=== PATIENT | female | born 1975 | race Hispanic/Latino ===

== ENCOUNTER → 2018-11-12 | Outpatient (CLI) | payer BC ==
--- NOTE | 2018-11-12 12:42 | RAD ---
EXAM DESCRIPTION: Pelvis CLINICAL HISTORY: 43 years Female, M25.561, M25.551 hip pain. COMPARISON: None. TECHNIQUE: AP radiograph of the pelvis was performed. FINDINGS: The pelvic ring appears grossly intact on this single AP radiograph. No acute fracture or dislocation. Bilateral sacroiliac joints appear grossly unremarkable.. Bilateral hip joints appear normal. The visualized lumbo-sacral spine appear grossly unremarkable. IMPRESSION: Single AP radiograph of the pelvis demonstrates grossly intact pelvic ring. Electronically signed by: Jossue Liz MD 11/12/2018 12:39 PM CDT
--- NOTE | 2018-11-12 12:46 | RAD ---
EXAM DESCRIPTION: Knee,Left Complete CLINICAL HISTORY: 43 years Female, PAIN INLEFT KNEE TECHNIQUE: 4 views of the left knee were performed. COMPARISON: None available. FINDINGS: The visualized bones appear well mineralized. No acute fracture or dislocation. Mild aofb-lv-gsigsuan tricompartmental osteoarthritic changes with narrowing of the medial compartment joint space narrowing noted. Mild suprapatellar joint effusion noted. The soft tissues appear grossly unremarkable. IMPRESSION: 1. No acute fracture or dislocation. 2. Mild to moderate tricompartmental osteoarthritic changes with mild narrowing of medial compartment joint space. Small suprapatellar joint effusion. Electronically signed by: Jossue Liz MD 11/12/2018 12:43 PM CDT
== END ==
LOC: RAD 09:41
PROVIDERS: ATTEND Orthopaedic Surgery
DX: M17.11 Unilateral primary osteoarthritis, right knee (principal); M25.551 Pain in right hip

== ENCOUNTER 2020-05-15 09:00 | Day surgery (SDC) | payer BC | END 2020-05-19 12:00 | disposition home or self-care (01) | LOC: AMB 09:00 | PROVIDERS: ATTEND Orthopaedic Surgery | DX: M17.12 Unilateral primary osteoarthritis, left knee (principal); Z53.9 Procedure and treatment not carried out, unspecified reason ==

== ENCOUNTER 2020-09-09 05:29 | Inpatient (IN) | payer BC ==
[2020-09-09] MEDS ORDERED: SODIUM CHL 0.9% 100ML MINI-BAG 100 ML IVPB ONE (05:58)
[2020-09-09] MEDS ORDERED: SODIUM CHLORIDE 0.9% 100ML 100 ML IVPB ONE (05:59)
[2020-09-09] MEDS ORDERED: SODIUM CHLORIDE 0.9% (FLUSH) 10 ML SYG ONE (05:59)
[2020-09-09] MEDS ORDERED: SODIUM CHLORIDE 0.9% 250ML 250 ML ONE (05:59)
[2020-09-09] MEDS ORDERED: LACTATED RINGERS 1,000 ML ONE (05:59)
[2020-09-09] MEDS ORDERED: VANCOMYCIN HCL INJ 1,000 MG VIAL IVPB ONE (06:00)
[2020-09-09] MEDS ORDERED: TRANEXAMIC ACID 1,000 MG/10 ML VIAL ONE (06:00)
[2020-09-09] MEDS ORDERED: ceFAZolin SODIUM 1 GM VIAL ONE (06:00)
[2020-09-09] MEDS ORDERED: ONDANSETRON INJ 4 MG/2 ML VIAL ONE (07:00)
[2020-09-09] MEDS ORDERED: PROPOFOL 200 MG/20 ML VIAL IV ONE (07:00)
[2020-09-09] MEDS ORDERED: METOCLOPRAMIDE HCL INJ 10 MG/2 ML VIAL ONE (07:00)
[2020-09-09] MEDS ORDERED: DEXAMETHASONE INJ 10 MG/ML VIAL ONE (07:00)
[2020-09-09] MEDS ORDERED: MIDAZOLAM INJ 2 MG/2 ML VIAL ONE (07:01)
[2020-09-09] MEDS ORDERED: ROCURONIUM BROMIDE 10 MG/ML VIAL ONE (07:02)
[2020-09-09] MEDS ORDERED: SUCCINYLCHOLINE CHLORIDE 200 MG/10 ML VIAL ONE (07:02)
[2020-09-09] MEDS ORDERED: fentaNYL CITRATE INJ 50 MCG/ML 5 ML AMP ONE (07:02)
[2020-09-09] MEDS ORDERED: PROMETHAZINE HCL INJ 25 MG in SODIUM CHLORIDE 0.9% 50ML 50 ML IVPB PRN (07:03)
[2020-09-09] MEDS ORDERED: ALUMINUM & MAGNESIUM HYDROXIDE 30 ML UD PO PRN (07:03)
[2020-09-09] MEDS ORDERED: MAGNESIUM HYDROXIDE 30 ML UD PO PRN (07:03)
[2020-09-09] MEDS ORDERED: TRANEXAMIC ACID INJ 1,000 MG in SODIUM CHLORIDE 0.9% 100ML 100 ML IVPB ONE (07:03)
[2020-09-09] MEDS ORDERED: hydrOXYzine HCl 25 MG TAB PO PRN (07:03)
[2020-09-09] MEDS ORDERED: NALOXONE HCL INJ 0.4 MG/ML VIAL IV PRN (07:03)
[2020-09-09] MEDS ORDERED: ACETAMINOPHEN 500 MG TAB PO PRN (07:03)
[2020-09-09] MEDS ORDERED: ZOLPIDEM TARTRATE 5 MG TAB PO PRN (07:03)
[2020-09-09] MEDS ORDERED: traMADol HCL 50 MG TAB PO PRN (07:03)
[2020-09-09] MEDS ORDERED: TEMAZEPAM 15 MG CAP PO PRN (07:03)
[2020-09-09] MEDS ORDERED: DEX 5% W/NACL 0.45% 1000ML 1,000 ML IVS PRN (07:03)
[2020-09-09] MEDS ORDERED: MORPHINE SULFATE INJ 10 MG/ML VIAL IM PRN (07:03)
[2020-09-09] MEDS ORDERED: SODIUM CHLORIDE 0.9% (FLUSH) 10 ML SYG IV PRN (07:03)
[2020-09-09] MEDS ORDERED: MORPHINE SULFATE INJ 10 MG/ML VIAL IV PRN (07:03)
[2020-09-09] MEDS ORDERED: BENZOCAINE-MENTH LOZ (CEPACOL) 1 EA LOZ MT PRN (07:03)
[2020-09-09] MEDS ORDERED: PROMETHAZINE HCL INJ 12.5 MG in SODIUM CHLORIDE 0.9% 50ML 50 ML IVPB PRN (07:03)
[2020-09-09] MEDS ORDERED: BISACODYL SUPPOSITORY 10 MG PR PRN (07:03)
[2020-09-09] MEDS ORDERED: ACETAMINOPHEN 325 MG TAB PO PRN (07:03)
[2020-09-09] MEDS ORDERED: MORPHINE SULFATE *EPIDURAL* 0.5 MG/ML VIAL ONE (07:10)
[2020-09-09] MEDS ORDERED: IV SET AND CAP CHANGE INJ INJ SCH (07:30)
[2020-09-09] MEDS ORDERED: MORPHINE PCA 1 MG/ML 100 ML BAG IVPB SCH (07:30)
[2020-09-09] MEDS: VANCOMYCIN HCL INJ 1,000 MG VIAL IVPB ONE ×3 (08:12→09:11)
[2020-09-09] MEDS: ceFAZolin SODIUM 1 GM VIAL ONE ×3 (08:12→09:11)
[2020-09-09] MEDS: BUPIVACAINE LIPOSOME 13.3 MG/ML VIAL INJ ONE ×2 (08:13→09:09)
[2020-09-09] MEDS: BUPIVACAINE 0.5% 30 ML VIAL INJ ONE ×2 (08:13→09:09)
[2020-09-09] MEDS ORDERED: BUPIVACAINE 0.5% 30 ML VIAL INJ ONE (08:46)
[2020-09-09] MEDS ORDERED: CADD ADMIN SET 1 EA PKG INJ ONE (10:12)
[2020-09-09] MEDS ORDERED: diphenhydrAMINE HCL 50 MG/ML VIAL ONE (11:52)
[2020-09-09] MEDS: ONDANSETRON INJ 4 MG/2 ML VIAL IV PRN ×2 (11:54→17:50)
[2020-09-09] MEDS: diphenhydrAMINE HCL 50 MG/ML VIAL IV PRN (12:01)
[2020-09-09] MEDS: CELECOXIB 100 MG CAP PO SCH ×2 (14:37→18:07)
[2020-09-09] MEDS: MAGNESIUM OXIDE 400 MG TAB PO SCH (14:38)
--- NOTE | 2020-09-09 16:26 | RAD ---
Intraoperative radiographs of the left knee Indication: LEFT TKA Comparison: None. Impression: 1 Images submitted. Postsurgical changes of left total knee arthroplasty partially visualized. Fluoroscopy time not submitted. Electronically signed by: Min Nunez MD 09/09/2020 4:25 PM [facility]
--- NOTE | 2020-09-09 17:14 | RAD ---
EXAM DESCRIPTION: Knee,Left 1 or 2 Views CLINICAL HISTORY: 45 years Female, TKA COMPARISON: None. Findings: Two images Location: Left knee Recent left total knee arthroplasty. No evidence of hardware complication. No acute fracture or dislocation. Expected postsurgical appearance of the overlying soft tissues. IMPRESSION: Recent left total knee arthroplasty. No evidence of hardware complication. Electronically signed by: Davi Wolfe MD 09/09/2020 5:12 PM [facility]
[2020-09-09] MEDS: ceFAZolin SODIUM 2 GM in SODIUM CHL 0.9% 50ML MIN-BAG+ 50 ML IVPB SCH ×2 (17:31→23:46)
[2020-09-09] MEDS: VANCOMYCIN HCL INJ 1,000 MG in SODIUM CHLORIDE 0.9% 250ML 250 ML IVPB SCH (17:40)
[2020-09-09] MEDS ORDERED: DOCUSATE CALCIUM 240 MG CAP ONE (19:22)
[2020-09-09] MEDS ORDERED: ENOXAPARIN SODIUM 30 MG/0.3 ML SYG SUBCU ONE (19:22)
[2020-09-09] MEDS: DOCUSATE CALCIUM 240 MG CAP PO SCH (20:17)
[2020-09-09] MEDS: ENOXAPARIN SODIUM 30 MG/0.3 ML SYG SUBCU SCH (23:06)
[2020-09-10] MEDS: diphenhydrAMINE HCL 50 MG/ML VIAL IV PRN (03:53)
[2020-09-10] MEDS: VANCOMYCIN HCL INJ 1,000 MG in SODIUM CHLORIDE 0.9% 250ML 250 ML IVPB SCH (05:45)
[2020-09-10] MEDS ORDERED: LEVOTHYROXINE SODIUM 0.1 MG TAB ONE (07:11)
[2020-09-10] MEDS ORDERED: LEVOTHYROXINE SODIUM 0.075 MG TAB ONE (07:11)
[2020-09-10] MEDS ORDERED: NON-FORMULARY MEDICATION 1 EA MIS (Levothyroxine Sodium [Levothyroxine Sodium] 125 MCG) PO SCH (07:30)
[2020-09-10] MEDS: LEVOTHYROXINE SODIUM 0.075 MG TAB PO SCH (07:33)
[2020-09-10] MEDS: CELECOXIB 100 MG CAP PO SCH ×2 (07:33→16:27)
[2020-09-10] MEDS: LEVOTHYROXINE SODIUM 0.1 MG TAB PO SCH (07:35)
[2020-09-10] MEDS: ceFAZolin SODIUM 2 GM in SODIUM CHL 0.9% 50ML MIN-BAG+ 50 ML IVPB SCH (07:38)
[2020-09-10] MEDS: MAGNESIUM OXIDE 400 MG TAB PO SCH (08:15)
--- NOTE | 2020-09-10 09:06 | PN ---
DATE: 09/10/20 SUBJECTIVE: Angelina is doing really well this morning. OBJECTIVE: Afebrile. Vital signs stable. Dressing is clean, dry and intact. ASSESSMENT: Status post total knee arthroplasty. PLAN: The plan at this point is for her to begin physical therapy for weightbearing as tolerated. #[id number] MTDD
--- NOTE | 2020-09-10 09:40 | OP ---
DATE OF PROCEDURE: 09/09/20 PREOPERATIVE DIAGNOSIS: 1. Osteoarthritis of the left knee. POSTOPERATIVE DIAGNOSIS: 1. Osteoarthritis of the left knee. PROCEDURE: 1. Total knee arthroplasty. SURGEON: Anthony Ponce MD. BILL SORTER: Shade Pichardo CST, SA-C. ANESTHESIA: General anesthesia. COMPLICATIONS: None. FINDINGS: Severe osteoarthritis. INDICATION: Ms. Seals has a history of knee pain that has been refractory to conservative measures. She has requested operative intervention secondary to the failure of conservative measures. After discussing the risks, benefits and alternatives to that, the patient has given informed consent for total knee arthroplasty. PROCEDURE: The patient was brought to the Operating Room and placed in supine position. General anesthesia was induced and the patient's leg was sterilely prepped and draped. Following prepping and draping, the distal femur was exposed and using an intramedullary guide, the distal femoral cut was made. The appropriate sized cutting block was measured, pinned into place, and the anterior, posterior, and chamfer cuts were made. The ACL was transected and the tibia was subluxed. Both the medial and lateral menisci were removed. An intramedullary guide was used to make the proximal tibial cut. The appropriate sized base plate was placed and a trial polyethylene was placed. The trial femur was placed, the knee was reduced, and the knee was taken through a range of motion. The knee was stable in anterior, posterior, varus and valgus stress. The patella tracked anatomically without evidence of subluxation or dislocation. After trialing, the trial components were removed and the bony surfaces were thoroughly irrigated with saline. Following irrigation, the surfaces were dried and the final components were cemented into place. The excess cement was removed and the remaining cement was allowed to cure. The knee was again taken through a range of motion to confirm stability. The wound was then irrigated with saline and closure was performed using PDS to approximate the arthrotomy followed by closure of the subcutaneous tissues with a combination of running and interrupted Monocryl sutures. Sterile dressing was placed. The patient was awoken from anesthesia and taken to Recovery. COMPONENTS: Hedgeable Triathlon knee, size 4 femur, size 4 tibia, 9 mm insert. #[id number] MTDD
[2020-09-10] MEDS: ENOXAPARIN SODIUM 30 MG/0.3 ML SYG SUBCU SCH ×2 (10:33→22:52)
[2020-09-10] MEDS ORDERED: GLUCAGON INJ 1 MG VIAL SUBCU PRN (10:41)
[2020-09-10] MEDS ORDERED: DEXTROSE 50% 25 GM/50 ML SYG IV PRN (10:41)
--- NOTE | 2020-09-10 11:08 | CONS ---
SUPERVISING PHYSICIAN: Priscilla Tolbert MD DATE OF CONSULTATION: 09/09/20 REASON FOR CONSULTATION: Medical management postoperative, left total knee arthroplasty. HISTORY OF PRESENT ILLNESS: This is a 45-year-old female patient who lives in [place], [place]. She has had osteoarthritis of the left knee for many years and has tried conservative measures, but has failed to gain any relief. She requested Dr. Anthony Ponce, orthopedic surgeon, for operative intervention. She was admitted to the hospital today for surgical intervention to have left total knee arthroplasty. There were no intraoperative complications and she was admitted to the Medical/Surgical Floor after her surgery. PAST MEDICAL HISTORY: 1. Hypothyroidism. 2. Mild diabetes on metformin. 3. Osteoarthritis. 4. Mild anxiety and depression. PAST SURGICAL HISTORY: 1. . OUTPATIENT MEDICATIONS: 1. Sertraline. 2. Levothyroxine. ALLERGIES: NO KNOWN DRUG ALLERGIES. SOCIAL HISTORY: She lives in [place]. She denies any tobacco, ETOH or illicit drug use. REVIEW OF SYSTEMS: Negative except as per history of present illness. PHYSICAL EXAMINATION: VITAL SIGNS: Temperature 98, heart rate 75, blood pressure 110/74, respiratory rate 16, O2 saturation 92% on room air. GENERAL: This is a 45-year-old obese female who is lying in her hospital bed in no acute distress. HEENT: Normocephalic, atraumatic. Pupils are equal and reactive. Oropharynx is clear. NECK: Supple with full range of motion. RESPIRATORY: Essentially clear to auscultation bilaterally. CARDIOVASCULAR: Regular rate and rhythm. GASTROINTESTINAL: Abdomen is soft, nondistended, nontender. Bowel sounds are positive. EXTREMITIES: She has a dressing with Chris wrap to her left knee that is dry and intact. Bilateral pedal pulses are palpable are +2. NEUROLOGIC: Awake, alert and oriented times three. Cranial nerves II-XII are grossly intact as tested. LABORATORY: Urinalysis is unremarkable. Urine drug screen is negative. Her operative reports and x-rays are per the EMR. IMPRESSION: 1. Osteoarthritis of the left knee status post left total knee arthroplasty performed by Dr. Anthony Ponce, orthopedic surgeon, postoperative day #0. 2. Hypothyroidism on medications. 3. Diabetes mellitus, type 2, on metformin, well controlled. PLAN: The patient has been admitted to the hospital. Her operative issues will be per Dr. Ponce. She will begin with her physical therapy for strengthening and conditioning. I have encouraged good pulmonary hygiene. I have restarted her home medications as well as put her on sliding scale insulin per protocol. We will to monitor and treat as needed. #[id number] [facility]
[2020-09-10] MEDS: INSULIN LISPRO 100 UNITS/ML PEN SUBCU SCH ×3 (11:44→21:03)
[2020-09-10] MEDS ORDERED: INSULIN LISPRO 100 UNITS/ML PEN SUBCU SCH (12:00)
[2020-09-10] MEDS ORDERED: ENOXAPARIN SODIUM 30 MG/0.3 ML SYG SUBCU ONE (19:19)
[2020-09-10] MEDS: DOCUSATE CALCIUM 240 MG CAP PO SCH (20:30)
[2020-09-10] MEDS: CYCLOBENZAPRINE HCL 10 MG TAB PO PRN (20:30)
[2020-09-11] MEDS: diphenhydrAMINE HCL 50 MG/ML VIAL IV PRN (01:29)
[2020-09-11] MEDS: HYDROcodone 5MG/APAP 325MG 1 EA TAB PO PRN ×2 (01:47→05:48)
[2020-09-11] MEDS: INSULIN LISPRO 100 UNITS/ML PEN SUBCU SCH ×4 (07:41→20:52)
--- NOTE | 2020-09-11 08:10 | PN ---
SUPERVISING PHYSICIAN: Syed Tolbert MD DATE: 09/10/20 SUBJECTIVE: The patients is sitting up in her chair in her room. She does have some tightness around that left knee but otherwise she has no complaints. Physical therapy worked with her this morning and she did well. OBJECTIVE: VITAL SIGNS: Temperature 97.9, heart rate 64, blood pressure 95/61, respiratory rate 16, oxygen saturation 100% on room air. RESPIRATORY: Essence clear to auscultation bilaterally. CARDIAC: Regular rate and rhythm. EXTREMITIES: Her left knee is wrapped in an jamal bandage. It is dry and intact. Bilateral pedal pulses are +2. NEUROLOGICAL: She is awake, alert, and oriented x3. LABORATORY: Hemoglobin 12, hematocrit 36.7. IMPRESSION: 1. Osteoarthritis of the left knee status post left total knee arthroplasty performed by Dr. Antohny Ponce, orthopedic surgeon, postoperative day #1. 2. Hypothyroidism on medications. 3. Diabetes mellitus, type 2, on metformin, well controlled. PLAN: We will continue present supportive care. Orthopedic issues will be per Dr. Ponce. She will continue with her physical therapy for strengthening and conditioning. She did get a walker today for discharge. She will have physical therapy as an outpatient at [facility] in [place]. Hopefully, she can be discharged in the next 24-48 hours. #[id number] MTDD
[2020-09-11] MEDS: LEVOTHYROXINE SODIUM 0.1 MG TAB PO SCH (08:37)
[2020-09-11] MEDS: CELECOXIB 100 MG CAP PO SCH ×2 (08:38→17:48)
[2020-09-11] MEDS: LEVOTHYROXINE SODIUM 0.075 MG TAB PO SCH (08:39)
[2020-09-11] MEDS: MAGNESIUM OXIDE 400 MG TAB PO SCH (08:39)
[2020-09-11] MEDS: SODIUM CHLORIDE 0.9% (FLUSH) 10 ML SYG IV SCH ×2 (08:43→20:24)
[2020-09-11] MEDS ORDERED: CYCLOBENZAPRINE HCL 10 MG TAB ONE (08:48)
[2020-09-11] MEDS: CYCLOBENZAPRINE HCL 10 MG TAB PO PRN (08:49)
[2020-09-11] MEDS: HYDROcodone 10MG/APAP 325MG 1 EA TAB PO PRN ×3 (08:50→17:48)
--- NOTE | 2020-09-11 08:51 | PN ---
DATE: 09/11/20 SUBJECTIVE: Angelina is doing pretty well. She is up to a chair and her pain seems to be well tolerated. OBJECTIVE: Afebrile. Vital signs stable. Wound is clean. There are no signs or symptoms of infection. ASSESSMENT: Status post total knee arthroplasty. PLAN: The plan is to continue with her weightbearing status. We will continue to monitor and see if she is ready to discharge today or tomorrow based on her progress with physical therapy today. #[id number] MTDD
[2020-09-11] MEDS: ENOXAPARIN SODIUM 30 MG/0.3 ML SYG SUBCU SCH ×2 (10:51→22:58)
--- NOTE | 2020-09-11 14:15 | PN ---
SUPERVISING PHYSICIAN: Priscilla Tolbert MD DATE: 09/11/20 SUBJECTIVE: The patient has been doing well. She has had good pain control. She has had no more nausea or vomiting. No shortness of breath. She has been participating with physical therapy without any complications. OBJECTIVE: VITAL SIGNS: Temperature 97.5, pulse 86, blood pressure 116/78, respirations 18, saturation 95% on room air. GENERAL: The patient is resting comfortably currently. She just finished physical therapy. She is back on CPM. CHEST: Lungs are clear to auscultation. HEART: Regular rate and rhythm. ABDOMEN: Soft, nontender. Positive bowel sounds. EXTREMITIES: Dressing remains in place on left knee with Iceman. Distal pulses are strong. Capillary refill brisk. NEUROLOGIC: Alert and oriented times three. LABORATORY: Postoperative hemoglobin 12.0 hematocrit 3.67. Blood sugars remain between 103 and 127. ASSESSMENT: 1. Osteoarthritis of the left knee status post left total knee arthroplasty performed by Dr. Anthony Ponce, orthopedic surgeon, postoperative day #2. 2. Hypothyroidism on medications. 3. Diabetes mellitus, type 2, on metformin, well controlled. PLAN: We will continue to follow the patient postoperatively as she continues with physical therapy. The plan is to discharge hopefully tomorrow. [facility]. We will continue to encourage good bronchial hygiene. Her home medications have been started. She remains on sliding scale insulin. Until the patient can transition to outpatient management, which hopefully will be tomorrow, we will continue to monitor and treat as needed. #[id number] MTDD
[2020-09-11] MEDS: DOCUSATE CALCIUM 240 MG CAP PO SCH (20:24)
[2020-09-12 02:12] VITALS: O2SAT 97
[2020-09-12] MEDS: HYDROcodone 10MG/APAP 325MG 1 EA TAB PO PRN (03:39)
[2020-09-12] MEDS: CYCLOBENZAPRINE HCL 10 MG TAB PO PRN (04:22)
[2020-09-12] MEDS: INSULIN LISPRO 100 UNITS/ML PEN SUBCU SCH ×2 (07:30→12:36)
[2020-09-12] MEDS: CELECOXIB 100 MG CAP PO SCH (08:25)
[2020-09-12] MEDS: MAGNESIUM OXIDE 400 MG TAB PO SCH (08:25)
[2020-09-12] MEDS ORDERED: LEVOTHYROXINE SODIUM 0.025 MG TAB ONE (08:30)
[2020-09-12] MEDS: LEVOTHYROXINE SODIUM 0.075 MG TAB PO SCH (08:37)
[2020-09-12] MEDS: LEVOTHYROXINE SODIUM 0.1 MG TAB PO SCH (08:39)
[2020-09-12] MEDS: SODIUM CHLORIDE 0.9% (FLUSH) 10 ML SYG IV SCH (08:40)
[2020-09-12] MEDS: ENOXAPARIN SODIUM 30 MG/0.3 ML SYG SUBCU SCH (11:35)
[2020-09-12 12:38] VITALS: BP 132/74; TEMP 98.8
--- NOTE | 2020-09-12 16:29 | DS ---
SUPERVISING PHYSICIAN: Priscilla Tolbert MD ADMISSION DIAGNOSES: 1. Osteoarthritis of the left knee status post left total knee arthroplasty performed by Dr. Anthony Ponce, orthopedic surgeon, postoperative day #0. 2. Hypothyroidism on medications. 3. Diabetes mellitus, type 2, on metformin, well controlled. DISCHARGE DIAGNOSES: 1. Osteoarthritis of the left knee status post left total knee arthroplasty performed by Dr. Anthony Ponce, orthopedic surgeon, postoperative day #3. 2. Hypothyroidism on medications. 3. Diabetes mellitus, type 2, on metformin, well controlled. REASON FOR HOSPITALIZATION: This is a 45-year-old female patient who lives in [place], [place]. She has had osteoarthritis of the left knee for many years and has tried conservative measures, but has failed to gain any relief. She requested Dr. Anthony Ponce, orthopedic surgeon, for operative intervention. She was admitted to the hospital today for surgical intervention to have left total knee arthroplasty. There were no intraoperative complications and she was admitted to the Medical/Surgical Floor after her surgery. LABORATORY: Postoperative hemoglobin 12.0, hematocrit 36.7. Blood sugar ranged between 96 and 117. Urinalysis just showed a small amount of blood. Urine HCG was negative. Toxicology screen was negative. RADIOLOGY: Please see the pre- and postoperative x-rays. PROCEDURE: Left total knee arthroplasty. Please see Dr. Ponce's operative note for details. MEDICAL CONSULTATION: Hospitalist, Pura Allan. Please see her medical consultation for details. HOSPITAL COURSE: Mr. Seals is admitted for an elective procedure that included a left total knee arthroplasty. She had no intraoperative complications. Postoperatively, she did well. She was able to participate in physical therapy. She was ambulating and tolerating a diet. She had good pain control and it was felt that she had progressed well enough to continue with outpatient management. PLAN: The patient was discharged on 09/12/[address] Ponce as scheduled. She is to resume her usual diet. She was to continue with physical therapy through the [facility] in [place], [place]. She was to call Dr. Ponce's office with any questions. On discharge, she was provided prescriptions for pain management per Dr. Ponce and Doxycycline 100 mg every 12 hours for 5 days and Xarelto 10 mg daily for 8 day treatment course. CONDITION ON DISCHARGE: Stable and improved. DISPOSITION: Patient was discharged. #[id number] [facility]
[2020-09-12] MEDS ORDERED: MAGNESIUM HYDROXIDE 30 ML UD PO ONE (21:00)
[2020-09-12] MEDS ORDERED: BISACODYL SUPPOSITORY 10 MG PR ONE (21:00)
== END 2020-09-12 11:45 | disposition home or self-care (01) | DRG 470 ==
LOC: AMB 05:29 → MS 10:40
PROVIDERS: ADMIT Orthopaedic Surgery; ATTEND Nurse Practitioner Family
PROC: 0SRD0J9 Replacement of Left Knee Joint with Synthetic Substitute, Cemented, Open Approach (ICD-10-PCS; principal; 2020-09-09 07:12)
DX: M17.12 Unilateral primary osteoarthritis, left knee (principal); Z68.41 Body mass index [BMI] 40.0-44.9, adult; E03.9 Hypothyroidism, unspecified; E11.9 Type 2 diabetes mellitus without complications; F41.9 Anxiety disorder, unspecified; F32.9 Major depressive disorder, single episode, unspecified; E66.9 Obesity, unspecified; Z79.84 Long term (current) use of oral hypoglycemic drugs; Z79.1 Long term (current) use of non-steroidal anti-inflammatories (NSAID); Z79.52 Long term (current) use of systemic steroids; Z79.899 Other long term (current) drug therapy